=== PATIENT | female | born 1940 | race Caucasian/White ===

== ENCOUNTER → 2019-05-08 12:58 | Outpatient (CLI) | payer MEDICARE, SELFPAY ==
--- NOTE | 2019-05-08 | DI.CT.S_ITS ---
PROCEDURE: CT UE RT WO CON INDICATIONS: PAIN IN RIGHT SHOULDER TECHNIQUE: Noncontrast 1-1.5 mm thick sections acquired from the acromioclavicular joint to the inferior scapula, with coronal and sagittal reformatting. COMPARISON: [facility] [place], CR, XR SHOULDER 2+ VIEWS RIGHT, 01/12/2019, 10:59. FINDINGS: Image quality: Excellent. Bones: Diffuse osteopenia. No definite fracture seen although limited study diagnostic sensitivity of an advanced arthritic changes. There is prominent subacromial heterotopic ossification versus loose body Severe right shoulder joint degeneration with [id number] appearance. No os acromiale. Moderate AC joint degeneration. Diffuse scarring/atelectasis in the visualized lungs without focal consolidation. Multilevel spondylosis. There is atrophy of the rotator cuff musculature diffusely. IMPRESSION: Advanced right glenohumeral joint degeneration, with associated chronic deformity as above Dictated by: Gutierrez Bojorquez M.D. on 05/08/2019 at 14:28 Approved by: Gutierrez Bojorquez M.D. on 05/08/2019 at 14:34
== END ==
PROVIDERS: Family Provider Internal Medicine; PCP Internal Medicine; Visit Provider Orthopaedic Surgery
DX: M25.511 Pain in right shoulder (principal); M19.011 Primary osteoarthritis, right shoulder
CPT/HCPCS: 73200